=== PATIENT | male | born 1965 | race American Indian/Alaskan Native ===

== ENCOUNTER 2021-12-15 12:28 | Emergency (ER) | payer SELFPAY ==
[2021-12-15 13:24] VITALS: BP 100/70
--- NOTE | 2021-12-15 13:27 | Emergency Department Report ---
Stated Complaint: KIDNEY STONES - HPI History of Present Illness: 56 Y M with dx with kidney stones 2 months ago and reports no passing and reports decrease urination and blood in urine for x 7 days with lower abdominal pain . and also report right testicular pain with swelling noted. no fever reports. - ROS Review of Systems: lower abdominal pain with blood in urine and right side testicular pain - Exam Physical Exam: nonl abored breathing a/ox3 NAD gait steady MSE screening note: Focused history and physical exam performed. Due to findings the following was ordered: orders placed, medically screen. pending room assignment for further eval by another provider in the back. patient is stable ED Disposition for MSE Condition: Stable
--- NOTE | 2021-12-15 14:05 | Cat Scan Report ---
CT ABDOMEN AND PELVIS WITHOUT CONTRAST HISTORY: lower abdominal pain with blood in urine COMPARISON: None TECHNIQUE: Routine abdominal and pelvic CT exam performed without contrast. Lack of intravenous cont rast limits evaluation of the vascular and solid organs.. All CT scans at this location are performed using CT dose reduction for ALARA by means of automated exposure control. FINDINGS: CT ABDOMEN: Lung Bases: No significant abnormality. Liver: No significant abnormality. Biliary: No significant abnormality. Spleen: No significant abnormality. Unenlarged. Pancreas: No significant abnormality. Adrenals: No significant abnormality. Kidneys: No stones, pelvocaliectasis, ureterectasis. No perinephric or periureteral stranding. Lymphatics: No lymphadenopathy. Vasculature: No significant abnormality. Bowel/Peritoneum: No significant abnormality. No free air. No free fluid. CT PELVIC: : No significant abnormality. Lymphatics: No lymphadenopathy. Osseous Structures: No aggressive appearing osseous lesions. Moderate lumbar spondylosis. Additional Findings: None IMPRESSION: 1. No acute findings or findings to explain the patient's symptoms. Signer Name: Negro Sahni MD Signed: 12/15/2021 2:01 PM Workstation Name: [id number]
[2021-12-15 14:34] LABS: Basophils % (Auto) 0.7 % (0.0-1.8); Eosinophils # (Auto) 0.6 K/mm3 (0.0-0.4); Eosinophils % (Auto) 7.5 % (0.0-4.3); Hematocrit 37.7 % (35.5-45.6); Hemoglobin 12.9 gm/dl (11.8-15.2); Lymphocytes # (Auto) 1.9 K/mm3 (1.2-5.4); Lymphocytes % (Auto) 25.4 % (13.4-35.0); Mean Corpuscular HGB Conc 34 % (32-34); Mean Corpuscular Volume 85 fl (84-94); Monocytes # (Auto) 0.6 K/mm3 (0.0-0.8); Platelet Count 358 K/mm3 (140-440); Red Blood Count 4.45 M/mm3 (3.65-5.03); Red Cell Distribution Width 13.9 % (13.2-15.2)
--- NOTE | 2021-12-15 15:27 | Ultrasound Report ---
ULTRASOUND SCROTUM INDICATION / CLINICAL INFORMATION: right testicluar with swelling. COMPARISON: None available. FINDINGS -- RIGHT: TESTIS: Size = 3.5 x 2 x 2.8 cm. - Appearance: Heterogeneous diffusely. - Cyst / Mass: Indeterminate area superiorly and medially measuring approximately 2 cm. - Color Doppler Flow: No significant abnormality. EPIDIDYMIS: Enlarged diffusely. HYDROCELE: Moderate complex hydrocele. VARICOCELE: None demonstrated. FINDINGS -- LEFT: TESTIS: Size = 3 x 2.5 x 2.4 cm. - Appearance: Heterogeneous diffusely. - Cyst / Mass: Small complex cysts with the larger measuring 5 mm. - Color Doppler Flow: No significant abnormality. EPIDIDYMIS: Not well visualized. HYDROCELE: Moderate/large complex hydrocele. VARICOCELE: None demonstrated. ADDITIONAL FINDINGS: None. IMPRESSION: 1. Bilateral testicular heterogeneity. Small complex cystic areas left testicle are likely postinflam matory. An indeterminate area at at the upper pole of the right testicle is favored to be extratestic ular and postinflammatory. Short interval follow-up ultrasound is recommended following clearing of t he acute process. 2. Right-sided epididymitis. 3. Bilateral complex hydroceles left greater than right. Signer Name: Michael Bowles MD Signed: 12/15/2021 3:23 PM Workstation Name: [id number]
[2021-12-15 15:41] LABS: Alanine Aminotransferase 11 units/L (7-56); Albumin 3.9 g/dL (3.9-5); BUN/Creatinine Ratio 14; Blood Urea Nitrogen 14 mg/dL (9-20); Hemolysis Index 2
[2021-12-15 21:34] LABS: Color,Urine Yellow (Yellow)
[2021-12-15 21:37] LABS: Mucus,Urine 2+ /HPF
[2021-12-15 21:39] LABS: WBC,Urine > 182.0 /HPF (0.0-6.0)
[2021-12-15] MEDS ORDERED: LIDOCAINE-MPF (1%) 10 MG/1 ML VIAL 5 ML INFILTRATI ONE (22:32)
--- NOTE | 2021-12-15 22:53 | Emergency Department Report ---
ED Male HPI - General Chief complaint: Back Pain/Injury Stated complaint: KIDNEY STONES Time Seen by Provider: 12/15/21 22:32 Source: patient Mode of arrival: Ambulatory Limitations: No Limitations - History of Present Illness MD Complaint: testicle pain, testicle swelling, groin pain -: Gradual, days(s) (3) Location: right testicle Radiation: none Consistency: constant Improves with: none Worsens with: palpation, movement new medication denies: discharge, swelling, urinary retention, blood in urine, nausea/vomiting, incontinence - Related Data Previous Rx's Medication Instructions Recorded Last Taken Type Azithromycin [Zithromax TAB] 1,000 mg PO ONCE #2 tablet 12/15/21 Unknown Rx DOXYCYCLINE Hyclate [Vibramycin 100 mg PO BID #20 capsule 12/15/21 Unknown Rx CAP] predniSONE [Deltasone] 20 mg PO QDAY #5 tab 12/15/21 Unknown Rx Allergies Allergy/AdvReac Type Severity Reaction Status Date / Time No Known Allergies Allergy Verified 12/15/21 13:25 ED Review of Systems ROS: Stated complaint: KIDNEY STONES Other details as noted in HPI Comment: All other systems reviewed and negative ED Past Medical Hx - Past Medical History Additional medical history: igg4, kidney stones - Medications Home Medications: Home Medications Medication Instructions Recorded Confirmed Last Taken Type Azithromycin [Zithromax TAB] 1,000 mg PO ONCE #2 tablet 12/15/21 Unknown Rx DOXYCYCLINE Hyclate [Vibramycin 100 mg PO BID #20 capsule 12/15/21 Unknown Rx CAP] predniSONE [Deltasone] 20 mg PO QDAY #5 tab 12/15/21 Unknown Rx ED Physical Exam - General Limitations: No Limitations General appearance: alert, in no apparent distress - Head Head exam: Present: atraumatic, normocephalic - Eye Eye exam: Present: normal appearance - ENT ENT exam: Present: mucous membranes moist - Neck Neck exam: Present: normal inspection - Respiratory Respiratory exam: Present: normal lung sounds bilaterally. Absent: respiratory distress - Cardiovascular Cardiovascular Exam: Present: regular rate, normal rhythm. Absent: systolic murmur, diastolic murmur, rubs, gallop - GI/Abdominal GI/Abdominal exam: Present: soft, normal bowel sounds - Rectal Rectal exam: Present: deferred - exam: Present: testicular tenderness, scrotal swelling. Absent: urethral discharge, vertical testicular lie External exam: Present: normal external exam - Extremities Exam Extremities exam: Present: normal inspection, normal capillary refill - Back Exam Back exam: Present: normal inspection - Neurological Exam Neurological exam: Present: alert, oriented X3 - Psychiatric Psychiatric exam: Present: normal affect, normal mood - Skin Skin exam: Present: warm, dry, intact, normal color. Absent: rash ED Course Vital Signs 12/15/21 13:20 Temperature 98.9 F Pulse Rate 82 Respiratory 16 Rate Blood Pressure 100/70 [Right] O2 Sat by Pulse 100 Oximetry ED Medical Decision Making - Lab Data Result diagrams: 12/15/21 14:01 12/15/21 14:01 - Radiology Data Radiology results: report reviewed [facility] [address] [place] [address] Ultrasound Report Signed Patient: DAVID AVENDANO MR#: [id number] : 1965 Acct:[id number] Age/Sex: 56 / M ADM Date: 12/15/21 Loc: ED Attending Dr: Ordering Physician: KRYSTEN CHOUDHURY NP Date of Service: 12/15/21 Procedure(s): US testicular doppler comp Accession Number(s): [id number] cc: KRYSTEN CHOUDHURY NP ULTRASOUND SCROTUM INDICATION / CLINICAL INFORMATION: right testicluar with swelling. COMPARISON: None available. FINDINGS -- RIGHT: TESTIS: Size = 3.5 x 2 x 2.8 cm. - Appearance: Heterogeneous diffusely. - Cyst / Mass: Indeterminate area superiorly and medially measuring approximately 2 cm. - Color Doppler Flow: No significant abnormality. EPIDIDYMIS: Enlarged diffusely. HYDROCELE: Moderate complex hydrocele. VARICOCELE: None demonstrated. FINDINGS -- LEFT: TESTIS: Size = 3 x 2.5 x 2.4 cm. - Appearance: Heterogeneous diffusely. - Cyst / Mass: Small complex cysts with the larger measuring 5 mm. - Color Doppler Flow: No significant abnormality. EPIDIDYMIS: Not well visualized. HYDROCELE: Moderate/large complex hydrocele. VARICOCELE: None demonstrated. ADDITIONAL FINDINGS: None. IMPRESSION: 1. Bilateral testicular heterogeneity. Small complex cystic areas left testicle are likely postinflammatory. An indeterminate area at at the upper pole of the right testicle is favored to be extratesticular and postinflammatory. Short interval follow-up ultrasound is recommended following clearing of the acute process. 2. Right-sided epididymitis. 3. Bilateral complex hydroceles left greater than right. Signer Name: Michael Bowles MD Signed: 12/15/2021 3:23 PM Workstation Name: [id number] Transcribed By: MALIHA Dictated By: Michael Bowles MD Electronically Authenticated By: Michael Bowles MD Signed Date/Time: 12/15/21 1523 DD/ 1517 TD/TT: [address] [place] [address] Cat Scan Report Signed Patient: DAVID AVENDANO MR#: [id number] : 1965 Acct:[id number] Age/Sex: 56 / M ADM Date: 12/15/21 Loc: ED Attending Dr: Ordering Physician: KRYSTEN CHOUDHURY NP Date of Service: 12/15/21 Procedure(s): CT abdomen pelvis wo con Accession Number(s): [id number] cc: KRYSTEN CHOUDHURY NP CT ABDOMEN AND PELVIS WITHOUT CONTRAST HISTORY: lower abdominal pain with blood in urine COMPARISON: None TECHNIQUE: Routine abdominal and pelvic CT exam performed without contrast. Lack of intravenous contrast limits evaluation of the vascular and solid organs.. All CT scans at this location are performed using CT dose reduction for ALARA by means of automated exposure control. FINDINGS: CT ABDOMEN: Lung Bases: No significant abnormality. Liver: No significant abnormality. Biliary: No significant abnormality. Spleen: No significant abnormality. Unenlarged. Pancreas: No significant abnormality. Adrenals: No significant abnormality. Kidneys: No stones, pelvocaliectasis, ureterectasis. No perinephric or periureteral stranding. Lymphatics: No lymphadenopathy. Vasculature: No significant abnormality. Bowel/Peritoneum: No significant abnormality. No free air. No free fluid. CT PELVIC: : No significant abnormality. Lymphatics: No lymphadenopathy. Osseous Structures: No aggressive appearing osseous lesions. Moderate lumbar spondylosis. Additional Findings: None IMPRESSION: 1. No acute findings or findings to explain the patient's symptoms. Signer Name: Negro Sahni MD Signed: 12/15/2021 2:01 PM Workstation Name: [id number] Transcribed By: BRANDON Dictated By: Negro Sahni MD Electronically Authenticated By: Negro Sahni MD Signed Date/Time: 12/15/21 1401 DD/ [id number] TD/TT: - Medical Decision Making This patient presents with abdominal pain of unclear etiology. A CT scan was performed to evaluate for potential causes of the abdominal pain, however, neither the clinical exam nor the CT has identified an emergent etiology for the abdominal pain. Specifically, given the benign exam, the laboratory studies, and unremarkable CT, I have a very low suspicion for appendicitis, ischemic bowel, bowel perforation, or any other life threatening disease. I have discussed with the patient the level of uncertainty with undifferentiated abdominal pain and clearly explained the need to follow-up as noted on the discharge instructions, or return to the Emergency Department immediately if the pain worsens, develops fever, persistent and uncontrollable vomiting, or for any new symptoms or concerns. Ultrasound shows consistencies of the right epididymitis per week with we will treat and have follow-up with primary care provider Critical care attestation.: If time is entered above; I have spent that time in minutes in the direct care of this critically ill patient, excluding procedure time. ED Disposition Clinical Impression: Epididymitis Disposition: 01 HOME / SELF CARE / HOMELESS Is pt being admited?: No Does the pt Need Aspirin: No Condition: Stable Instructions: Epididymitis (ED) Prescriptions: predniSONE [Deltasone] 20 mg PO QDAY #5 tab DOXYCYCLINE Hyclate [Vibramycin CAP] 100 mg PO BID #20 capsule Azithromycin [Zithromax TAB] 1,000 mg PO ONCE #2 tablet Referrals: TOÑO MOCTEZUMA MD [Primary Care Provider] - 3-5 Days [facility] [Outside] - 3-5 Days Forms: STI Treatment and Prevention
== END 2021-12-15 23:15 | disposition home or self-care (01) ==
LOC: ED 12:28
DX: N45.1 Epididymitis (principal); Z79.899 Other long term (current) drug therapy
CPT/HCPCS: 36415; 74176; 80053; 81001; 85025; 93975; 96372; 99284; J0696; J3490